=== PATIENT | male | born 1950 | race Caucasian/White ===

== ENCOUNTER 2021-01-05 14:26 | Outpatient (REF) | payer MEDICARE, SELFPAY ==
[2021-01-05 14:15] LABS: HCT 41.7 % (40.0-50.0); HGB 13.4 g/dL (13.5-17.5); MCH 29.9 pg (27.0-33.0); MCHC 32.1 % (32.0-36.0); MCV 93.1 fL (80-95); MPV 10.9 fL (8.0-11.0); Platelet Count 328 10^3/uL (130-400); RBC 4.48 10^6/uL (4.36-5.78); RDW 12.5 % (11.8-14.1); RDW-SD 42.8 fL; WBC 7.25 10^3/uL (4.4-10.8)
[2021-01-05 14:49] LABS: BUN 22 mg/dL (7-18); CREATININE 1.3 mg/dL (0.70-1.30); Calcium 9.5 mg/dL (8.5-10.1); Calculated LDL 99 mg/dL (<100); Chloride 109 mmol/L (98-107); Cholesterol 174 mg/dL (<200); Estimated GFR 54.73 (mL/min/1.73m2); Glucose 112 mg/dL (74-106); HDL Cholesterol 53 mg/dL (40-60); Potassium 4.7 mmol/L (3.5-5.1); Sodium 147 mmol/L (136-145); Triglyceride 110 mg/dL (<150)
--- NOTE | 2021-02-13 13:51 | W.NUTCONSULT ---
Date of service: 02/13/21 Time of Service: 13:51 Nutritional Consult ASSESSMENT: 70 year old male, referred for Medical Nutrition Therapy for prediabetes. Most recent fasting blood sugar 112 mg/dl. Lipids wnl. BMI wnl for age. Migel reports that he has had prediabetes for the last 10 years. No recent A1C. Diet recall indicates lower carb gluten free diet with emphasis on fruits, vegetables, lean protein and complex carbs. Does not eat convenience foods, avoids simple sugars. Exercises on recumbent bike daily for 30 minutes. Recently moved to [place], travels for work out of state. NUTRITIONAL DIAGNOSIS: Elevated fasting blood sugar indicating pre diabets INTERVENTION: Current meal plan and exercise following ADA guidelines for decreasing insulin resistance. Offered 10 day continuous glucose monitor to assess glycemic response to typial meals and fasting blood sugars. Not interested in CGM at this time. Educated on well balanced meal plan/exercise to help with insulin resistance that may be causing elevated fasting blood sugars. Recommend A1C q 6 months to assess glycemic control. MONITORING AND EVALUATION: Continue lower carb meal plan, meal plans provided. Continue 30 min exericse daily. Check A1C q 6 months and follow up prn. Time Spent in Nutritional Counseling and Treatment: 30
== END 2021-01-05 14:27 | disposition home or self-care (01) ==
LOC: NCHCN 14:26
PROVIDERS: Visit Provider Family Medicine
DX: E78.1 Pure hyperglyceridemia (principal); D68.62 Lupus anticoagulant syndrome; E66.9 Obesity, unspecified
CPT/HCPCS: 80048; 80061; 85027

== ENCOUNTER 2021-07-10 20:26 | Outpatient (REF) | payer MEDICARE, SELFPAY ==
--- OUTSIDE RECORDS SUMMARY | 2021-07-10 20:30 | XMS_ITS | Encounter Summary ---
:1950 Author Care Team Providers Name Role Phone Karol Hunt MD Primary Care Provider [phone] Nazario Davenport MD Primary Care Provider [phone] [facility] Medical Records OTHER [phone] Reason for Visit Telehealth - Video/Zoom Assessment and Plan 1. Obstructive sleep apnea syndr ome SOPHIE diagnosed at an outside fa cility in 2010 with an AHI of 88.1/hr. He had been using CPAP at a fixed pressure of 11 cm and significant improvement in snoring and sleep quality. Then last spr ing he developed a runnt nose and pain i n his nostrils when he used CPAP. This progressed to the point of significant pain causing him to have to rip the CPAP off after only 30 minutes and he stopped co mpletely a few weeks ago due to this eliza n. He tried OTC products like saline spray and vaseline and this did not help at all. He was concerned it was possibly related to the recall. He never turned the humidity up and when I had him check the setting today it was at 0. I had him set it to 4/5 and recommended he try CPAP again. I also suggested the saline spray with this. If he is still having a proble m he would like me to order a new CPAP ( which he would likely have to pay for out of pocket because his is not 5 years old). I will order an APAP 8-13 cm. He will let me know where he would luike the or virginie sent. I also would suggest as ENT re ferral if he continues to have the pain in nares. I advised him to register his machine as he has not yet done that. I provided greater than 30 minutes in e care of this patient, more than half the time was spent in [id number] counseling. Discussion Note: None recorded.Patient educational handouts: No information available. Plan of Care Reminders Provider Appointments Visit 07/16/2022 Mary Ann Judge NP Lab None ? ? recorded. Referral None ? ? recorded. Procedures None ? ? recorded. Surgeries None ? ? recorded. Imaging None ? ? recorded. Medications Name Start Date ? ? Asprin Ec Low Dose 81 mg tablet,delayed release ? Take 1 tablet every day by oral route. Eliquis 5 mg tablet ? Take 1 tablet twice a day by oral route. fenofibrate 160 mg tablet ? Take 1 tablet every day by oral route. Fish Oil ? loratadine 10 mg tablet ? Take 1 tablet every day by oral route. sildenafil 50 mg tablet ? Take 1 tablet every day by oral route. Medications Administered None recorded. Vitals Height Weight BMI 5 ft 7 in 217 lbs 34 kg/m2 Results Lab Results None recorded. Allergies Code Code System Name Reaction Severity Onset NKDA ? ? ? Problems Name Status Onset Date Source ? Hypertriglyceridemia Active 07/15/2020 ? Erectile Dysfunction Active 07/15/2020 ? Bilateral Hearing Loss Active 07/15/2020 ? Allergic Rhinitis Active 07/15/2020 ? Low Back Pain Active 07/15/2020 ? 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 Hypercoagulability State Active ? ? Obstructive Sleep Apnea Syndrome Active ? ? Pulmonary Embolism Active ? ? Procedures None recorded. Vaccine List None recorded. Social History Tobacco Smoking Status Never Smoker Hard of hearing or deaf in one or Y Note s: bilateral hearing aides both ears? What is your level of alcohol Occasional Notes: 2 glasses of wine a consumption? night Live alone or with others? alone Are you currently employed? Y What is your level of caffeine None consumption? Are you blind or do you have Y Notes: w ears glasses difficulty seeing? How much tobacco do you chew? none Functional Status Are you blind or do you Yes have difficulty seeing?? Past Encounters 05/13/2021 Obstructive Sleep Apnea Syndrome Mary Ann Judge [employer]: [address] [place] [phone], Ph. History of Present Illness Note: <p>Pedro Garcia has a Zoom visit for SOPHIE follow-up. He has given consent to have a telehealth visit. Patient is at home, provider is in the office.</p><p>Pedro was seen by me on 07/16/20. He has a medical history to include allergic rhinitis, ED, hypercoagulable state, multiple PE's, and SOPHIE. PSG 06/10/10 AHI 88.1/hr, sp02 michael 77%, no PLMS.</p><p>Last visit he was using CPAP 11 cm regularly with an excellent reduction in AHI. He uses nasal pillows and tolerates these well. He gets his supplies online. </p><div>Migel reports he stopped using his CPAP </div><div>He says every since last winter he has had significant problems with sneezing and runny nose. Then several months ago he started to experience pain in his nose in the morning or waking him up at night. He tried some OTC products to include saline nasal spray and vaseline in nostrils but it got worse and painful to the point it caused such significant pain he could not tolerate using the CPAP any longer so he stopped a few weeks ago. Then he tried it for one night when things seemed to be getting better and he had to rip it off after only 30 minutes.He says he saw his PCP who didn't see anything wrong.</div><div>Since stopping CPAP sleep he waking 3-5 times a night and gets back to sleep in 10-15 minutes. He is feeling more sleepy during the day. He is not sure if he snores. He denies nocturia, night sweats or nocturnal heartburn. He never increased the humidity setting and it is set at </div><div>
</div><div>He has not registered his CPAP with [facility] and I advised him to do that. </div><div>
</div><div>ESS 02/08</div><div>
</div><div>COMPLIANCE DATA: N/A</div>Review of Systems: ROS as noted in the HPI Review of Systems None recorded. Physical Exam ? Notes: <div>N/A</div>
--- OUTSIDE RECORDS SUMMARY | 2021-07-10 20:30 | XMS_ITS ---
:1950 Author Care Team Providers Name Role Phone DORA DEL ROSARIO MD Primary Care Provider [phone] [facility] RECORDS OTHER [phone] JIMMY LAGOS MD Primary Care Provider [phone] Allergies Code Code System Name Reaction Severity Status Onset NKDA ? Medications Name Status Start Date Stop Date ? ? aspirin Completed ? 07/16/2020 Asprin Ec Low Dose 81 mg tablet,delayed release Active ? Not available Take 1 tablet every day by oral route. cyclobenzaprine Completed ? 07/16/2020 5 mg tab Eliquis 5 mg tablet Active ? Not availabl e Take 1 tablet twice a day by oral route. fenofibrate 160 mg tablet Active ? Not av ailable Take 1 tablet every day by oral route. Fish Oil Active ? Not available loratadine 10 mg tablet Active ? Not avai lable Take 1 tablet every day by oral route. sildenafil 50 mg tablet Active ? Not avai lable Take 1 tablet every day by oral route. Problems Name Status Onset Date Source ? Hypertriglyceridemia Active 07/15/2020 ? Erectile Dysfunction Active 07/15/2020 ? Bilateral Hearing Loss Active 07/15/2020 ? Allergic Rhinitis Active 07/15/2020 ? Low Back Pain Active 07/15/2020 ? 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 Hypercoagulability State Active ? ? Obstructive Sleep Apnea Syndrome Active ? ? Pulmonary Embolism Active ? ? Procedures None recorded. Results Lab Results None recorded. Past Encounters 05/13/2021 Obstructive Sleep Apnea Syndrome Mary Ann Judge [employer]ER [employer]: [address] [place] [address] [employer] [address] [phone], Ph. 07/16/2020 Obstructive Sleep Apnea Syndrome Mary Ann Judge [employer]: [address] [place] [phone], Ph. Social History Tobacco Smoking Status Never Smoker Vaccine List None recorded. Plan of Care Reminders Provider Appointments None ? ? recorded. Lab None ? ? recorded. Referral None ? ? recorded. Procedures None ? ? recorded. Surgeries None ? ? recorded. Imaging None ? ? recorded. Vitals 05/13/2021 01:15PM Office 30 Height Weight BMI 170.18 cm 98.43 kg 34 kg/m2 07/16/2020 01:00PM New Patient 45 Height Weight BMI Blood Pressure 170.18 cm 98.43 kg 34 kg/m2 120/68 mm[Hg]
[2021-07-10 21:14] LABS: HCT 41.8 % (40.0-50.0); HGB 13.6 g/dL (13.5-17.5); MCH 29.5 pg (27.0-33.0); MCHC 32.5 % (32.0-36.0); MCV 90.7 fL (80-95); MPV 10.9 fL (8.0-11.0); Platelet Count 317 10^3/uL (130-400); RBC 4.61 10^6/uL (4.36-5.78); RDW 12.6 % (11.8-14.1); RDW-SD 41.8 fL; WBC 7.45 10^3/uL (4.4-10.8)
== END 2021-07-10 20:27 | disposition home or self-care (01) ==
LOC: NCHCN 20:26
PROVIDERS: Visit Provider Family Medicine
DX: R59.1 Generalized enlarged lymph nodes (principal)
CPT/HCPCS: 85027

== ENCOUNTER → 2021-07-23 01:12 | Outpatient (CLI) | payer MEDICARE, SELFPAY ==
--- NOTE | 2021-07-23 07:13 | DI.RAD_ITS ---
Exam(s) XR CHEST 2V PA LATERAL EXAM: XR CHEST 2V PA LATERAL CLINICAL HISTORY: LYMPHADENOPATHY, R59.1 TECHNIQUE: 2D digital imaging was performed of the chest. Two images were obtained. PA and lateral views were obtained. COMPARISON: No exams were available for comparison FINDINGS: MEDIASTINUM: Normal. HEART: Normal. PULMONARY VASCULATURE: Normal. LUNGS: Clear. PLEURAL SPACE: No pleural effusion or pneumothorax. BONE:Within normal limits for the patient's age. OTHER FINDINGS:Normal. IMPRESSION: No acute pulmonary findings. DATA REPOSITORY: RADIATION DOSE DELIVERED:
--- NOTE | 2021-07-23 07:30 | DI.US_ITS ---
Exam(s) US SOFT TISSUE HEAD OR NECK EXAM: US SOFT TISSUE HEAD OR NECK CLINICAL HISTORY: LYMPHADENOPATHY, R59.1. TECHNIQUE: Ultrasound was performed using standard protocol. COMPARISON: No exams were available for comparison FINDINGS: Sonographic assessment utilizing grayscale and color Doppler imaging was performed and targeted to th e area of clinical concern. There is a solid isoechoic avascular mass measuring 1.6 x 0.8 x 1.2 cm in the right posterolateral ne ck corresponding to the palpable area of concern. It does not meet the sonographic arterial for a be nign appearing lymph node. A CT scan of the neck is recommended for further evaluation. IMPRESSION: Nonspecific solid isoechoic mass in the posterolateral neck. CT scan of the neck with contrast is re commended for further evaluation. DATA REPOSITORY:
== END ==
PROVIDERS: Visit Provider Family Medicine
DX: R22.1 Localized swelling, mass and lump, neck
CPT/HCPCS: 76536; 71046

== ENCOUNTER → 2021-08-28 01:13 | Outpatient (CLI) | payer MEDICARE, SELFPAY ==
--- NOTE | 2021-08-28 09:15 | DI.CT_ITS ---
Exam(s) CT NECK WO EXAM: CT NECK WO CLINICAL HISTORY: LYMPHADENOPATHY R59.1. TECHNIQUE: Imaging Protocol: Axial CT angiography was performed with multi-slice acquisition and mu lti-planar and/or 3D reconstructions. CONTRAST MATERIAL: Intravenous: None (contrast shortage contingency protocol) COMPARISON: No exams were available for comparison FINDINGS: Nasopharynx: Unremarkable Oropharynx: No abnormal focal findings. Uvula midline. Retropharyngeal space: No abnormal swelling. Hypopharynx: Valleculae and free edge of the epiglottis appear unremarkable. Aryepiglottic folds unr emarkable. Vocal cords: Unremarkable. Subglottic airway unremarkable: Visualized thyroid gland: Unremarkable. Salivary glands: Right parotid gland unremarkable. There is a round benign-appearing 6 x 6 millimete r hypodensity in the visual aspect of the left parotid gland, noncalcified. This exhibits fat densit y. Both parotid glands appear unremarkable. Lymph nodes: There is small subpleural cysts mole benign-appearing lymph nodes noted bilaterally. Th ere is no gross lymphadenopathy in either side of the neck nor in the supraclavicular regions. Vascular: Assessment of carotid arteries cannot be performed because of lack of IV contrast. There i s some calcified plaque noted at the carotid bifurcation proximal internal carotid arteries, slightly more so on the right side. Other: Patient apparently feels a lump on the posterior right side of the neck. There is no obvious mass evident in this region. IMPRESSION: 1. No evidence of mass in the posterior right side of the neck which where the patient apparently fee ls lump. 2. Benign-appearing finding in the left parotid gland superficial lobe, as described above. 3. Small benign-appearing lymph nodes in the neck but no gross lymphadenopathy. No abnormal fluid co llections. RADIATION DOSE DELIVERED: 1,694.92mGy.cm Total DLP DATA REPOSITORY: All CT scans at this facility are submitted to the National Radiology Data Registry (NRDR) Dose Index Registry (DIR) with the [employer] (ACR). RADIATION OPTIMIZATION: All CT scans at this facility use at least one of these dose optimization te chniques: automated exposure control; mA and/or kV adjustment per patient size (includes targeted exa ms where dose is matched to clinical indication); or iterative reconstruction.
== END ==
PROVIDERS: PCP Family Medicine; Visit Provider Family Medicine
DX: R59.0 Localized enlarged lymph nodes (principal)
CPT/HCPCS: 70490

== ENCOUNTER 2021-12-23 14:10 | Outpatient (REF) | payer MEDICARE, SELFPAY ==
[2021-12-23 16:36] LABS: Hemoglobin A1C 6.3 % (<5.7)
[2021-12-23 16:53] LABS: Anion Gap 9.1 mmol/L (3-11); BUN 25 mg/dL (7-18); CO2 25.9 mmol/L (21.0-32.0); CREATININE 1.5 mg/dL (0.70-1.30); Chloride 109 mmol/L (98-107); Estimated GFR 49.77 (mL/min/1.73m2); Glucose 121 mg/dL (74-106); Potassium 3.9 mmol/L (3.5-5.1); Sodium 144 mmol/L (136-145)
== END 2021-12-23 14:11 | disposition home or self-care (01) ==
LOC: NCHCN 14:10
PROVIDERS: PCP Family Medicine; Visit Provider Family Medicine
DX: R73.03 Prediabetes (principal)
CPT/HCPCS: 80048; 83036

== ENCOUNTER → 2022-06-09 13:47 | Outpatient (BNVA) | payer MEDICARE, SELFPAY | PROVIDERS: PCP Family Medicine; Referring Provider Family Medicine; Visit Provider Physical Therapy Assistant | DX: Z12.11 Encounter for screening for malignant neoplasm of colon (principal) ==

== ENCOUNTER 2022-06-21 10:49 | Day surgery (SDC) | payer MEDICARE, SELFPAY ==
--- NOTE | 2022-06-20 21:03 | W.PM.DSUDISC ---
Date of service: 06/21/22 Time of Service: 12:55 Discharge Plan Disposition Patient Disposition: Home Condition: Good Discharge Details Reason For Visit: Screening colonoscopy Attending Provider: Raffi Raines Primary Care Provider: Nazario Davenport Home Meds and New Rx's Prescriptions: Continued multivitamin Tablet 1 tab PO DAILY loratadine [Allergy Relief (loratadine)] 10 mg tablet 10 mg PO DAILY aspirin [Adult Aspirin Regimen] 81 mg tablet,delayed release (DR/EC) 81 mg PO DAILY fenofibrate 160 mg tablet 160 mg PO DAILY Eliquis 5 mg tablet 5 mg PO BID Discontinued peg 3350-electrolytes [Golytely] 236-22.74-6.74 -5.86 gram recon soln 240 ml PO Q10M Qty: 4000 0RF Rx Instructions: until fecal effluent is clear Discharge Instructions Instructions: Diverticulosis (GEN), Diverticulosis Diet (GEN) Additional Instructions: Bill, we were able to complete your colonoscopy today without any difficulty. You do have some diverticulosis. I have attached some information here regarding general management of diverticular disease. Otherwise, I did not see any signs of polyps or cancers. 1. If tolerated, consume a soft, low fiber diet for 1-2 days. 2[address] Do not drive, drink alcohol, operate machinery, make critical decisions, or do activities that require coordination or balance for 24 hours. 3. Because air was put into your colon during the procedure, expelling air from your rectum (passing gas or farting) is normal. 4. You may not have a bowel movement for 1-3 days because of the colonoscopy prep. This is normal. 5. Go directly to the emergency room if you notice any of the following: Develop chills (warm to touch), or if you have a thermometer and your temperature is above 101 Difficulty breathing or difficultly swallowing Persistent vomiting Severe abdominal pain, other than gas cramps Severe chest pain Black, tarry stools Any bleeding ? exceeding one tablespoon 6. Call your physician if the site where your intravenous was started becomes red, swollen, painful, and warm to touch. 7. Your physician has reviewed your pre-procedure medications. Please continue to take those medications as previously ordered. You will be given specific information/education regarding any changes to your medications before leaving. Activity:: Activity as Tolerated Diet:: As Tolerated Discharge Orders Discharge Orders: Discharge Order (Routine); Ordered 06/20/22 Ordered By: Raffi Raines DS: Diagnosis Discharge Diagnosis (1) Screening for colon cancer: Status: Acute Asessment and Plan: Normal screening colonoscopy.
--- NOTE | 2022-06-20 21:05 | W.COLOREPORT ---
Date of service: 06/21/22 Time of Service: 12:57 Colonoscopy Report Date of procedure: 06/21/22 Pre-op diagnosis general: Screening colonoscopy Post-op diagnosis procedure note: other (Diverticulosis) Procedure: Colonoscopy Surgeon: Raffi Raines Anesthesia Type: General:No Airway Estimated blood loss (mL): 0 Complications: None Disposition: same day Indications: Pedro is a 72 year old male who is due for a screening colonoscopy Prep: Miralax/Dulcolax Procedure Start Time: 12:30 Procedure End Time: 12:44 Retraction Time: 10 Findings: Diverticulosis Procedure Description: After the induction of monitored anesthetic care, and with the patient in left lateral decubitus position, I began by performing an external anorectal exam.? Perineum and skin were normal, as was the anal verge.? There was no evidence of external hemorrhoids.? Next, I performed a digital rectal exam.? I did not appreciate any abnormal findings.? Next, I advanced a colonoscope into the rectal vault.? I performed retroflexion.? This was normal.? Using insufflation, I then advanced the colonoscope beyond the rectal folds and into the sigmoid colon before advancing towards the cecum.? There was sigmoid diverticulosis. the quality of the prep was excellent.? The scope was noted to be in the cecum by identification of the ileocecal valve and appendiceal orifice.? I then began withdrawing the colonoscope using repeated irrigation as necessary for full evaluation of the colonic mucosa. ?Once the scope was withdrawn to the level of the rectum, great care was taken to examine portions of the rectal folds.? Finally, the scope was withdrawn and the patient was brought to the same-day surgery recovery unit as the anesthetic wore off. ?The findings and instructions were shared with the patient prior to discharge.
[2022-06-21 11:31] VITALS: BP 160/67; PULSE 54; RESP 16; TEMP 36.4; O2SAT 98
[2022-06-21] MEDS: Lactated Ringers 1,000 ML 80 ML IV (11:50)
--- NOTE | 2022-06-21 11:52 | W.ANESPRE ---
General Info Date of Service Date Performed: 06/21/22 Height: 5 ft 7 in Weight: 97 kg Body Mass Index (BMI): 33.5 Surgical Procedure: Operation Date: 06/21/22 09:50 Proposed Procedure Side Surgeon p Gladys Raines MD Meds Allergies and Home Medications Allergies Allergy/AdvReac Type Severity Reaction Status Date / Time No Known Allergies Allergy Verified 06/21/22 11:39 Home Medication Medication Instructions Recorded apixaban 5 mg tablet (Eliquis) 5 mg PO BID 08/28/21 aspirin 81 mg tablet,delayed 81 mg PO DAILY 08/28/21 release (Adult Aspirin Regimen) fenofibrate 160 mg tablet 160 mg PO DAILY 08/28/21 loratadine 10 mg tablet (Allergy 10 mg PO DAILY 08/28/21 Relief (loratadine)) multivitamin 1 tab PO DAILY 06/09/22 Current Visit Medications: Current Medications Generic Name Dose Route Start Last Admin Trade Name Freq PRN Reason Stop Dose Admin Hyoscyamine Sulfate 0.125 mg 06/20/22 21:06 Hyoscyamine 0.125 Mg Sl/Oral/Chew SL DIRECTED PRN Ringer's Solution 1,000 mls @ 80 mls/hr 06/21/22 06:00 IV 07/18/22 23:59 [facility] IV Miscellaneous Supplies 1 each 06/21/22 06:00 Iv Access IV 07/18/22 23:59 DIRECTED LION Ondansetron HCl 4 mg 06/20/22 21:06 Ondansetron 4 Mg/2 Ml Vial IVP Q4H PRN PRN Nausea / Vomiting Sodium Chloride 0 ml 06/21/22 06:00 Normal Saline Flush 10 Ml Syr IV 07/18/22 23:59 PRN PRN Sodium Chloride 0 ml 06/21/22 06:00 Normal Saline 10 Ml Vial IJ 07/18/22 23:59 DIRECTED PRN Sterile Water 0 ml 06/21/22 06:00 Water,Injection,Sterile 10 Ml Vial IJ 07/18/22 23:59 DIRECTED PRN PFSH Active Problems Active Problems: Problem Status Onset Code Screening for colon cancer Z12.11 SOPHIE (obstructive sleep apnea) G47.33 Prediabetes R73.03 Lupus anticoagulant disorder D68.62 Pulmonary embolism I26.99 Chronic anticoagulation Z79.01 Constipation K59.00 Diverticulosis K57.90 Medical History Medical History (Updated 06/21/22 @ 11:44 by Evelyn Mendez) Allergic rhinitis Bilateral hearing loss Chronic low back pain Erectile dysfunction Hx pulmonary embolism Hypertriglyceridemia Lupus anticoagulant disorder Per pt. states he has never been told this in his life Lymphadenopathy Obesity Medical History Comments:: father had issue during valve replacement, something to do with his anti-depressant Surgical History Surgical History Hx of colonoscopy Hx of knee surgery L meniscus Hx of vasectomy Tobacco Smoking/Tobacco Use Status: Former Tobacco Use Alcohol Alcohol Intake: current Alcohol intake frequency: a few times a week Alcohol type: wine Substance Use Substance use: Never Substance use type: does not use Details: wine: t-7 Vital Signs and Lab Results Vital Signs Most Recent Vital Signs in EMR: Most Recent Vital Signs Temp Pulse Resp BP Pulse Ox 36.4 C L 54 L 16 160/67 H 98 06/21/22 11:31 06/21/22 11:31 06/21/22 11:31 06/21/22 11:31 06/21/22 11:31 Lab Results Blood Type / Crossmatch: No Data to Display Complete Blood Count: No Data to Display Complete Metabolic Panel: No Data to Display Liver Function Panel: No Data to Display Coagulation Panel: No Data to Display Cardiac Panel: No Data to Display Arterial Blood Gas: No Data to Display Venous Blood Gas: No Data to Display Pancreas Panel: No Data to Display Thyroid Panel: No Data to Display Infectious Disease: No Data to Display Blood Cultures: No Data to Display Toxicology Panel: No Data to Display Anesthesia Assessment and Plan Anesthesia History Personal History: No History of Anesthesia Complications Family History: No Family History of Anesthesia Complications Exercise Tolerance Exercise Tolerance: Metabolic Equivalents>4 Pertinent Negatives Pertinent Negatives: No Symptoms of GERD, No Major Cardiovascular Symptoms or Complaints and No Major Pulmonary Symptoms or Complaints Cardiac & Pulmonary Exam Cardiac Exam: Normal S1/S2 Heart Sounds Pulmonary Exam: Clear Bilateral Breath Sounds Implantable Cardiac Device Does patient have a Pacemaker or an ICD?: No Airway Exam Known Difficult Airway: No Mallampati Class: 2 Mouth Opening: Normal (> 3cm) Thyromental Distance: Greater than 3 cm Facial Hair: Full North Neck Range of Motion: Full ROM Neck Circumference: Normal Teeth Condition: Normal Dentition ASA Classification ASA Score: ASA 3 Emergency Case?: No NPO Status NPO Status: NPO Clears >2 hours, Solids >8 hours Anesthesia Plan Resuscitation Status: Full Code Anesthesia Technique: General Anesthesia Airway Planned: Natural Airway Monitors Used: Standard Monitors
[2022-06-21 12:20] VITALS: BMI 33.5
[2022-06-21 12:50] VITALS: BP 126/71; PULSE 65; RESP 16; TEMP 36.9
--- NOTE | 2022-06-21 13:00 | W.ANESPOSTOP ---
Postoperative Evaluation Date, Time and Location Date Performed: 06/21/22 Time Performed: 13:00 Patient Location: Day Surgery Unit Vital Signs Most Recent Imported Vital Signs: Most Recent Vital Signs Temp Pulse Resp BP Pulse Ox 36.9 C 65 16 126/71 98 06/21/22 12:50 06/21/22 12:50 06/21/22 12:50 06/21/22 12:50 06/21/22 11:31 Pain Score Most Recent Pain Score: Most Recent Pain Score Pain Level 0 06/21/22 12:50 Assessment Mental Status: Awake (Alert & Oriented to Patient Baseline) Airway and Respiratory Function: Patent airway with normal (patient baseline) respiratory exam Cardiovascular Function: Hemodynamically Stable Hydration Status: Adequately Hydrated Nausea & Vomiting: No Nausea or Vomiting Pain: Pt. Denies Any Pain Peripheral Nerve Block: Patient did not receive a nerve block
[2022-06-21 13:22] VITALS: BP 126/67; RESP 18; TEMP 36.4; O2SAT 100
== END 2022-06-21 13:40 | disposition home or self-care (01) ==
PROVIDERS: PCP Family Medicine; Visit Provider Surgery
PROC: 0DJD8ZZ Inspection of Lower Intestinal Tract, Via Natural or Artificial Opening Endoscopic (ICD-10-PCS; CPT 45378; principal; 2022-06-21 09:45)
DX: Z12.11 Encounter for screening for malignant neoplasm of colon (principal); K57.30 Diverticulosis of large intestine without perforation or abscess without bleeding
CPT/HCPCS: G0121

== ENCOUNTER 2022-07-21 11:23 | Outpatient (REF) | payer MEDICARE, SELFPAY ==
[2022-07-21 15:00] LABS: Anion Gap 10.3 mmol/L (3-11); BUN 26 mg/dL (7-18); CO2 27.7 mmol/L (21.0-32.0); CREATININE 1.3 mg/dL (0.70-1.30); Calcium 9.2 mg/dL (8.5-10.1); Chloride 109 mmol/L (98-107); Estimated GFR 58.73 (mL/min/1.73m2); Glucose 126 mg/dL (74-106); Potassium 4.4 mmol/L (3.5-5.1); Sodium 147 mmol/L (136-145)
[2022-07-21 15:04] LABS: Hemoglobin A1C 6.4 % (<5.7)
== END 2022-07-21 11:24 | disposition home or self-care (01) ==
LOC: NCHCN 11:23
PROVIDERS: PCP Family Medicine; Visit Provider Family Medicine
DX: R73.03 Prediabetes (principal); G47.33 Obstructive sleep apnea (adult) (pediatric)
CPT/HCPCS: 80048; 83036

== ENCOUNTER 2023-01-17 14:40 | Outpatient (REF) | payer MEDICARE, SELFPAY ==
[2023-01-17 22:31] LABS: HCT 40.5 % (40.0-50.0); HGB 13.7 g/dL (13.5-17.5); MCH 30.2 pg (27.0-33.0); MCHC 33.8 % (32.0-36.0); MCV 89 fL (80-95); MPV 11.6 fL (8.0-11.0); Platelet Count 324 10^3/uL (130-400); RBC 4.54 10^6/uL (4.36-5.78); RDW 12.6 % (11.8-14.1); RDW-SD 41.3 fL
[2023-01-17 23:07] LABS: ALT 42 U/L (16-63); AST 28 U/L (15-37); Albumin 3.9 g/dL (3.4-5.0); Alkaline Phosphatase 49 U/L (46-116); Anion Gap 10.9 mmol/L (3-11); BUN 21 mg/dL (7-18); Bilirubin, Total 0.4 mg/dL (0.2-1.0); CO2 23.1 mmol/L (21.0-32.0); CREATININE 1.3 mg/dL (0.70-1.30); Calcium 9.3 mg/dL (8.5-10.1); Chloride 104 mmol/L (98-107); Estimated GFR 58.73 (mL/min/1.73m2); Glucose 143 mg/dL (74-106); Potassium 3.6 mmol/L (3.5-5.1); Sodium 138 mmol/L (136-145); Total Protein 7.4 g/dL (6.4-8.2)
== END 2023-01-17 14:41 | disposition home or self-care (01) ==
LOC: NCHCN 14:40
PROVIDERS: PCP Family Medicine; Visit Provider Family Medicine
DX: N18.31 Chronic kidney disease, stage 3a (principal); R73.03 Prediabetes
CPT/HCPCS: 80053; 85027

== ENCOUNTER 2023-10-11 07:33 | Emergency (ER) | payer MEDICARE, SELFPAY ==
--- NOTE | 2023-10-11 07:30 | RT.EKG_ITS ---
APPROVED REPORT Exam: Resting ECG Reason for Exam: dizzy Patient Location: E HR:51 bpm ECG Measurements Heart Rate 51 AXIS OR 185 P 38 QRSd 103 QRS -35 QT 425 T 31 QTc 392 Conclusion Sinus bradycardia 51 no stemi
[2023-10-11 07:35] VITALS: BP 157/55; PULSE 54; RESP 15; TEMP 36.2; O2SAT 99
[2023-10-11 07:41] VITALS: RESP 14
--- NOTE | 2023-10-11 07:44 | ED.GENADUL_ITS ---
Discharge Plan Disposition Patient Disposition: Home Discharge Details Clinical Impression: Vertigo, Imbalance, Dizziness, Nausea Primary Care Provider: Nazario Davenport ED Provider: Dragan Syed Home Meds and New Rx's Prescriptions: New meclizine 25 mg tablet 25 mg PO TID PRN (Reason: dizziness) Qty: 20 0RF ondansetron 4 mg tablet,disintegrating 4 mg PO Q6H PRNQty: 20 0RF No Action multivitamin Tablet 1 tab PO DAILY loratadine [Allergy Relief (loratadine)] 10 mg tablet 10 mg PO DAILY fenofibrate 160 mg tablet 160 mg PO DAILY Eliquis 5 mg tablet 5 mg PO BID sildenafil 50 mg tablet 50 mg PO DAILY PRN Rx Instructions: administer 30 minutes to 4 hours before activity Discharge Instructions Instructions: Vertigo ED HPI General Date/Time Provider Initiated Documentation: 10/11/23 07:36 . Limitations to Documentation: no limitations . Information obtained by: patient . HPI Narrative: 73-year-old gentleman with past medical history of pulmonary embolism, on apixaban, presents for evaluation of dizziness. He reports that he woke up this morning feeling imbalanced . He states that he does not feel like the room is spinning. He does not have headache or ear ringing. He denies any blurry vision. He is reports some mild nausea, but no vomiting. Denies chest pain or shortness of breath. He does not have trouble walking, but just feels like he might fall. This is never happened to him before. States that when he went to bed last night he felt normal. Denies any drugs or alcohol. Related Data Home Medications Medication Instructions Recorded Confirmed apixaban 5 mg tablet (Eliquis) 5 mg PO BID 08/28/21 10/11/23 fenofibrate 160 mg tablet 160 mg PO DAILY 08/28/21 10/11/23 loratadine 10 mg tablet (Allergy 10 mg PO DAILY 08/28/21 10/11/23 Relief (loratadine)) multivitamin 1 tab PO DAILY 06/09/22 10/11/23 sildenafil 50 mg tablet 50 mg PO DAILY PRN 05/06/23 10/11/23 meclizine 25 mg tablet 25 mg PO TID PRN dizziness #20 tabs 10/11/23 ondansetron 4 mg disintegrating 4 mg PO Q6H PRN #20 tabs 10/11/23 tablet Previous Rx's Medication Instructions Recorded meclizine 25 mg tablet 25 mg PO TID PRN dizziness #20 tabs 10/11/23 ondansetron 4 mg disintegrating 4 mg PO Q6H PRN #20 tabs 10/11/23 tablet Allergies Allergy/AdvReac Type Severity Reaction Status Date / Time No Known Allergies Allergy Verified 10/11/23 08:04 General Stated Complaint: Dizzy/Sync GUILLE: 3 Exam Narrative Exam Narrative: Review of Systems: All systems reviewed & are unremarkable except as noted in HPI and below Well-developed, no acute distress NCAT PERRL, normal conjunctiva + Horizontal nystagmus, worse when looking to the right Bradycardia, no murmur unlabored respiratory effort Nondistended abdomen Extremities w/o deformity, no cyanosis, no edema No rashes or lesions. no focal neurologic deficits, normal strength throughout Normal gait Appropriate mood and affect Course Vital Signs Vital signs: Vital Signs Temperature 36.2 C L 10/11/23 07:35 Pulse 54 L 10/11/23 07:35 Respiratory Rate 15 10/11/23 07:35 Blood Pressure 157/55 H 10/11/23 07:35 Pulse Oximetry 99 10/11/23 07:35 Temperature 36.2 C L 10/11/23 07:35 Pulse 54 L 10/11/23 07:35 Respiratory Rate 15 10/11/23 07:35 Blood Pressure 157/55 H 10/11/23 07:35 Blood Pressure Position Sitting 10/11/23 07:35 Pulse Oximetry 99 10/11/23 07:35 Oxygen Delivery Method Room Air 10/11/23 07:35 Oxygen Flow Rate 0 10/11/23 07:35 Lab/Test Results Lab/Test Results: Laboratory Tests Range/Units 10/11/23 10:36 Troponin I Cancelled Medical Decision Making Emergent evaluation of acute sense of imbalance. Initial differential includes vertigo, CVA, electrolyte derangement, also consider symptomatic bradycardia. Patient is noted to have bradycardia, has normal blood pressure. EKG reviewed and independently interpreted, it is sinus bradycardia without any significant concerning dysrhythmias. Lab work was obtained, no concerning electrolyte derangement. No alcohol or drugs in his system. Given his history and risk factors, an MRI of his brain was obtained to evaluate for CVA. This was negative. After Zofran and meclizine, the patient reports significant improvement in his symptoms. His gait is without ataxia. At this time feel he stable for discharge home with a diagnosis of vertigo. Return precautions advised. Follow-up with PCP. Medical Records Medical records reviewed: Yes I reviewed the patient's medical records. Lab Data Lab results reviewed: Yes I reviewed the patient's lab results. Quality:SDOH Health Related Social Needs: No Data to Display PFSH All Active Problems Nausea (Acute) Dizziness (Acute) Imbalance (Acute) Vertigo (Acute) Tinnitus, bilateral (Acute) Neck mass (Acute) Impairment of speech discrimination (Acute) Asymmetrical sensorineural hearing loss (Acute) Screening for colon cancer (Acute) SOPHIE (obstructive sleep apnea) (Chronic) Prediabetes (Acute) Lupus anticoagulant disorder (Acute) Pulmonary embolism (Chronic) Chronic anticoagulation (Acute) Constipation (Acute) Diverticulosis (Acute) Medical History Plantar fascial fibromatosis Chronic kidney disease Hyperglyceridemia, pure Hx pulmonary embolism Lupus anticoagulant disorder Per pt. states he has never been told this in his life Bilateral hearing loss Obesity Allergic rhinitis Chronic low back pain Erectile dysfunction Hypertriglyceridemia Lymphadenopathy Surgical History Hx of vasectomy Hx of knee surgery L meniscus Hx of colonoscopy Family History Other Cancer Clotting disorder Social History Smoking/Tobacco Use Status: Former Tobacco Use Quit Date: 04/18/89 Smoking risk assessment performed?: Yes Alcohol Intake: current Alcohol Intake frequency: a few times a week Alcohol type: wine Drug use: Never Substance use type: does not use Details: wine: t-7 Current gender identity: male Do you feel safe at home: Yes Do you feel safe in your relationship?: Yes
--- NOTE | 2023-10-11 07:45 | DI.MRI_ITS ---
Exam(s) MR BRAIN WO EXAM: MR BRAIN WO CLINICAL HISTORY: dizzy TECHNIQUE: Multiplanar multisequence MRI of the brain was performed. COMPARISON: No exams were available for comparison FINDINGS: VENTRICLES AND EXTRA AXIAL SPACES: Normal in size and morphology for the patient's age. MIDLINE SHIFT: None. CEREBRAL PARENCHYMA: No focus of restricted diffusion to suggest acute infarct. No space-occupying le yana identified. No significant white matter foci. HEMORRHAGE: None. BRAINSTEM/CEREBELLUM: Normal. VISUALIZED PARANASAL SINUSES/MASTOIDS:Clear. Vasculature: Normal flow void. PITUITARY GLAND: Unremarkable. ORBITS: Unremarkable. IMPRESSION: Unremarkable MRI of the brain. DATA REPOSITORY:
[2023-10-11] MEDS: Ondansetron 4 MG/2 ML VIAL (07:51)
[2023-10-11] MEDS: Meclizine 25 MG TAB PO (07:54)
[2023-10-11 07:59] LABS: Abs Immature Grans 0.04 10^3/uL (0.0-0.06); Absolute Basophil Count 0.04 10^3/uL (0.0-0.2); Absolute Eosinophil Count 0.42 10^3/uL (0.0-0.7); Absolute Lymphocyte Count 2.03 10^3/uL (1.2-3.4); Absolute Monocyte Count 0.92 10^3/uL (0.1-0.8); Absolute Neutrophil Count 3.53 10^3/uL (1.2-6.7); Basophils % 0.6 %; HCT 43.2 % (40.0-50.0); HGB 14.6 g/dL (13.5-17.5); Immature Grans % 0.6 %; Lymphocytes % 29.1 %; MCH 30.6 pg (27.0-33.0); MCHC 33.8 % (32.0-36.0); MCV 91 fL (80-95); MPV 10.5 fL (8.0-11.0); Monocytes % 13.2 %; Neutrophils % 50.5 %; Platelet Count 279 10^3/uL (130-400); RBC 4.77 10^6/uL (4.36-5.78); RDW 12.9 % (11.8-14.1); RDW-SD 42.7 fL; WBC 6.98 10^3/uL (4.4-10.8)
[2023-10-11 08:18] LABS: ALT 41 U/L (16-63); AST 24 U/L (15-37); Albumin 4.1 g/dL (3.4-5.0); Alkaline Phosphatase 46 U/L (46-116); Anion Gap 9.5 mmol/L (3-11); BUN 22 mg/dL (7-18); CO2 28.5 mmol/L (21.0-32.0); CREATININE 1.2 mg/dL (0.70-1.30); Calcium 9.3 mg/dL (8.5-10.1); Chloride 105 mmol/L (98-107); Estimated GFR 64.25 (mL/min/1.73m2); Glucose 144 mg/dL (74-106); Magnesium 1.7 mg/dL (1.8-2.4); Potassium 3.7 mmol/L (3.5-5.1); Sodium 143 mmol/L (136-145); Total Protein 7.5 g/dL (6.4-8.2); Troponin I < 50 ng/L (< or =60)
[2023-10-11 08:20] LABS: ETHANOL BLOOD < 3.0 mg/dL (<10)
[2023-10-11 08:33] LABS: *AMPHETAMINES SCREEN URINE Negative (Negative); *BARBITURATES SCREEN URINE Negative (Negative); *BENZODIAZEPINES SCREEN URINE Negative (Negative); Cannabinoids THC Negative (Negative); Cocaine Screen,Urine Negative (Negative); METHADONE URINE SCREEN Negative (Negative); OPIATES URINE SCREEN Negative (Negative); Tricyclic Antidepressants Negative (Negative)
[2023-10-11 09:30] VITALS: PULSE 55; RESP 15; O2SAT 98
[2023-10-11 09:31] VITALS: BP 164/92; PULSE 58; PULSE 60; RESP 17; O2SAT 99
[2023-10-11 09:40] VITALS: PULSE 58; RESP 17; O2SAT 99
[2023-10-11] MEDS: Magnesium Oxide 400 MG TAB PO (09:42)
[2023-10-11 09:48] VITALS: BP 155/66; PULSE 55
== END 2023-10-11 10:04 | disposition home or self-care (01) ==
PROVIDERS: Emergency Provider Emergency Medicine; PCP Family Medicine
DX: R26.89 Other abnormalities of gait and mobility (principal); R42 Dizziness and giddiness; R11.0 Nausea; Z86.711 Personal history of pulmonary embolism; Z79.01 Long term (current) use of anticoagulants; Z79.899 Other long term (current) drug therapy
CPT/HCPCS: 36415; 80053; 80307; 93005; 96374; 99285; 70551; 80320; 83735; 84484; 85025; 93010; 99284; J2405

== ENCOUNTER 2025-02-06 11:08 | Outpatient (REF) | payer MEDICARE, SELFPAY ==
[2025-02-06 15:44] LABS: HCT 41.6 % (40.0-50.0); HGB 14.2 g/dL (13.5-17.5); MCH 30.9 pg (27.0-33.0); MCHC 34.1 % (32.0-36.0); MCV 90 fL (80-95); MPV 11.5 fL (8.0-11.0); Platelet Count 290 10^3/uL (130-400); RBC 4.60 10^6/uL (4.36-5.78); RDW 12.6 % (11.8-14.1); RDW-SD 41.2 fL; WBC 6.78 10^3/uL (4.4-10.8)
[2025-02-06 15:55] LABS: ALT 54 U/L (16-63); AST 23 U/L (15-37); Albumin 4.0 g/dL (3.4-5.0); Alkaline Phosphatase 50 U/L (46-116); Anion Gap 10.4 mmol/L (3-11); BUN 19 mg/dL (7-18); Bilirubin, Total 0.5 mg/dL (0.2-1.0); CO2 26.6 mmol/L (21.0-32.0); Calcium 9.1 mg/dL (8.5-10.1); Calculated LDL 116 mg/dL (<100); Chloride 104 mmol/L (98-107); Cholesterol 185 mg/dL (<200); Estimated GFR 63.85 (mL/min/1.73m2); Glucose 122 mg/dL (74-106); HDL Cholesterol 54 mg/dL (>or=40); Potassium 3.9 mmol/L (3.5-5.1); Sodium 141 mmol/L (136-145); Total Protein 7.2 g/dL (6.4-8.2); Triglyceride 79 mg/dL (<150)
[2025-02-06 16:17] LABS: Hemoglobin A1C 6.6 % (<5.7)
== END 2025-02-06 11:09 | disposition home or self-care (01) ==
LOC: NCHCN 11:08
PROVIDERS: PCP Family Medicine; Visit Provider Family Medicine
DX: R73.03 Prediabetes (principal)
CPT/HCPCS: 80053; 80061; 85027; 83036

== ENCOUNTER → 2025-02-26 00:28 | Outpatient (CLI) | payer MEDICARE, SELFPAY ==
--- NOTE | 2025-02-26 07:10 | DI.US_ITS ---
Exam(s) US AAA SCREENING EXAM: US AAA SCREENING CLINICAL HISTORY: FORMER SMOKER, Z87.891, SCREENING AAA COMPARISON: US US SOFT TISSUE HEAD OR NECK from 07/23/2021 FINDINGS: There is no evidence of abdominal aortic aneurysm. Maximum diameter of the abdominal aorta is 2.6 cm proximally. Exhibits normal tapering distally. Diameters the visualized common iliac arteries are upper normal. IMPRESSION: No evidence of abdominal aortic aneurysm. DATA REPOSITORY:
== END ==
LOC: DI 00:28
PROVIDERS: PCP Family Medicine; Visit Provider Family Medicine
DX: Z13.6 Encounter for screening for cardiovascular disorders (principal); Z87.891 Personal history of nicotine dependence
CPT/HCPCS: 76706